=== PATIENT | female | born 1985 | race African-American/Black ===

== ENCOUNTER 2017-08-08 12:53 | Emergency (ER) | payer MEDICAID ==
[~2017-08-08 12:53] MED LIST: DEPO INJECTION
== END 2017-08-08 15:18 | disposition left against medical advice (07) ==
LOC: ER 15:05
DX: J02.9 Acute pharyngitis, unspecified (principal); Z53.21 Procedure and treatment not carried out due to patient leaving prior to being seen by health care provider

== ENCOUNTER 2017-08-08 16:51 | Emergency (ER) | payer MEDICAID ==
[~2017-08-08] VITALS: Ht 154.9 cm; Wt 60.0 kg
[2017-08-08] MEDS ORDERED: IBUPROFEN 600MG TABLET PO ONE (17:45)
[2017-08-08 17:55] VITALS: BP 150/75
[2017-08-08] MEDS ORDERED: PENICILLIN G BENZATHINE 1,200,000 UNITS/2ML SYR IM ONE (18:45)
== END 2017-08-08 19:00 | disposition home or self-care (01) ==
LOC: ER 16:51
DX: J02.0 Streptococcal pharyngitis (principal)
CPT/HCPCS: 87430; 96372; 99283; J0561

== ENCOUNTER 2019-06-11 11:34 | Emergency (ER) | payer MEDICAID ==
[~2019-06-11] VITALS: Ht 152.4 cm; Wt 100.0 kg
[2019-06-11 12:25] VITALS: BP 125/64
== END 2019-06-11 13:21 | disposition home or self-care (01) ==
LOC: ER 11:34
DX: S70.361A Insect bite (nonvenomous), right thigh, initial encounter (principal); W57.XXXA Bitten or stung by nonvenomous insect and other nonvenomous arthropods, initial encounter; Y93.89 Activity, other specified; Y92.018 Other place in single-family (private) house as the place of occurrence of the external cause
CPT/HCPCS: 99282

== ENCOUNTER 2021-02-03 09:43 | Emergency (ER) | payer MEDICAID, OTHER ==
[~2021-02-03] VITALS: Ht 154.9 cm; Wt 73.0 kg
[2021-02-03] MEDS ORDERED: IBUPROFEN 600MG TABLET PO STA (10:10)
[2021-02-03 11:22] VITALS: BP 127/78
== END 2021-02-03 11:23 | disposition home or self-care (01) ==
LOC: ER 09:43
DX: S53.401A Unspecified sprain of right elbow, initial encounter (principal); X58.XXXA Exposure to other specified factors, initial encounter; Y04.0XXA Assault by unarmed brawl or fight, initial encounter; Y93.89 Activity, other specified; Y92.89 Other specified places as the place of occurrence of the external cause; Y99.8 Other external cause status
CPT/HCPCS: 73080; 81025; 99283

== ENCOUNTER 2021-04-18 07:40 | Emergency (ER) | payer MEDICAID, OTHER ==
[~2021-04-18] VITALS: Ht 154.9 cm; Wt 64.0 kg
[~2021-04-18 07:40] MED LIST changes: +CETI10CA2 MT; +PSEU60TA95 MT
[2021-04-18 08:15] VITALS: BP 126/88
== END 2021-04-18 10:55 | disposition left against medical advice (07) ==
LOC: ER 07:40
DX: S20.212A Contusion of left front wall of thorax, initial encounter (principal); F32.9 Major depressive disorder, single episode, unspecified; R07.89 Other chest pain; Y08.89XA Assault by other specified means, initial encounter; Y93.9 Activity, unspecified; Y92.9 Unspecified place or not applicable; Z98.890 Other specified postprocedural states
CPT/HCPCS: 99281